=== PATIENT | male | born 1960 | race Caucasian/White ===

== ENCOUNTER 2019-02-07 03:13 | Inpatient (IN) | payer OTHER ==
[2019-02-07] VITALS (9 sets, daily range): BP systolic 123–168; BP diastolic 78–92
[~2019-02-07] VITALS: Ht 180.3 cm; Wt 110.8 kg
--- NOTE | ~2019-02-07 | CON ---
[place], [place] REPORT OF CONSULTATION NAME: ORQUIDEA CARRERA UNIT #: [id number] ROOM: 416 DOCTOR: SHAHAB MCFADDEN MD BIRTHDATE: [birth year] DOS: 02/07/2019 GASTROENDOSCOPIC REPORT HISTORY OF PRESENT ILLNESS: This is a 58-year-old patient who has presented with chief complaint of abdominal pain, undergoing investigation. He was admitted for definitive evaluation of abdominal pain. White blood cell was 5, H and H of 15 and 47. Lactic acid was 1.2. Comprehensive metabolic panel: BUN and creatinine 14 and 1.3. GFR greater than 60. Electrolytes were balanced. Bilirubin 1.9. GOT and GPT of 419 and 548 respectively with alkaline phosphatase of 2.3, lipase greater than 774. CT scan of the abdomen and pelvis was done. Gallbladder distended, which contains numerous gallstones without evidence of intrahepatic or extrahepatic biliary dilation. There is no gallbladder wall thickening. The liver is normal. There is no free air. Pelvic was normal otherwise. Appendix is not distended. Hepatobiliary scan again suggestive of hepatocellular disease; however, I believe this is a cystic duct obstruction as well. No identifiable biliary tree abnormalities. Other details as reported. PAST MEDICAL HISTORY: Associated with obesity, cholelithiasis, renal insufficiency, and cholecystitis. Past medical history also associated with primary hypertension, depression, and paranoia. PAST SURGICAL HISTORY: Appendectomy, abdominal surgeries. SOCIAL HISTORY: Nonsmoker or nonalcohol consumer. FAMILY HISTORY: Noncontributory. ALLERGIES: No known medications. MEDICATIONS: List reviewed. REVIEW OF SYSTEMS: HEENT: Denies double vision, blurred vision. RESPIRATORY: Denies acute shortness of breath. CARDIOVASCULAR: Denies acute chest pain. DIGESTIVE SYSTEM: Abdominal pain. PHYSICAL EXAMINATION: VITAL SIGNS: Stable. HEENT: Head normocephalic, nontraumatic. Mouth and buccal mucosa benign. NECK: Supple, no thyromegaly, no cervical lymphadenopathy. CHEST: Symmetric anatomy, equal expansion. No wheeze, no rhonchi. HEART: Normal sinus rhythm, no gallop, no murmur. ABDOMEN: Distended, obese, large. No rebound tenderness in right upper quadrant, epigastric pain. Bowel sounds present. EXTREMITIES: No cyanosis, no pedal edema. NEUROLOGIC: Alert, oriented to time, place, person. [place], [place] REPORT OF CONSULTATION NAME: ORQUIDEA CARRERA UNIT #: [id number] ROOM: 416 DOCTOR: SHAHAB MCFADDEN MD BIRTHDATE: [birth year] IMPRESSION: Gallstone pancreatitis, cholecystitis, and cholelithiasis. PLAN AND DISCUSSION: This patient requires to have cholecystectomy during this admission and perhaps a cholangiogram one way or the other, endoscopically or intraoperatively and reassessment as his epigastric abdominal pain could be secondary to his pancreatitis. OTHER ADJUNCTIVE DIAGNOSES: Hypertension and depression. SHAHAB MCFADDEN MD CM:CONSTR:REPORT OF CONSULTATION 1916 02/08/19 0248 interface
--- NOTE | ~2019-02-07 | EKG ---
[place], [place] ELECTROCARDIOGRAM REPORT NAME: ORQUIDEA CARRERA UNIT #: [id number] ROOM: 416 DOCTOR: MICHEAL DRAFT REPORT BIRTHDATE: [address] [facility] Test Date: 2019-02-07 Test Time: 03:35:57 Pat Name: ORQUIDEA CARRERA Department: Room: 416 Gender: M Assistant Professor Of Education: Jacinta Soto : 1960 Requested By: JETT FLYNN Order Number: [id number] Reading MD: Liane Larios MD Measurements Intervals [place] Rate: 87 P: 30 [place]: 155 QRS: -27 QRSD: 97 T: 87 QT: 367 QTc: 442 Interpretive Statements Sinus rhythm Borderline left axis deviation RSR' in V1 or V2, probably normal variant Consider anterior infarct Nonspecific T abnormalities, lateral leads Electronically Signed On 02-07-2019 13:19:49 PDT by Liane Larios MD CM:EKGRPT:ELECTROCARDIOGRAM REPORT [id number] JETT RAMOS DRAFT REPORT JETT FLYNN DO
[2019-02-07 03:50] LABS: BASO % 0.5 % (0.0-1.0); EOS # 0.1 10*3/uL (0.0-0.4); EOS % 2.4 % (1.0-4.0); HEMATOCRIT 47.2 % (42.0-52.0); HEMOGLOBIN 15.8 g/dl (14.0-18.0); LYMPH # 1.7 10*3/uL (1.3-4.4); LYMPH % 30.7 % (27.0-41.0); MEAN CELL VOLUME 92.4 fl (80.0-94.0); MEAN CORPUSCULAR HGB 30.9 pg (27.0-31.0); MEAN CORPUSCULAR HGB CONC 33.5 g/dl (33.0-37.0); MEAN PLATELET VOLUME 9.3 fl (9.6-12.3); MONO # 0.4 10*3/uL (0.1-1.0); MONO % 7.3 % (3.0-9.0); NEUT # 3.2 10*3/uL (2.3-7.9); NEUT % 58.6 % (47.0-73.0); PLATELET COUNT AUTOMATED 202 10*3/uL (130-400); RED BLOOD COUNT 5.11 10*6/uL (4.50-5.90); WHITE BLOOD COUNT 5.5 10*3/uL (4.8-10.8)
[2019-02-07 04:04] LABS: ALBUMIN 3.7 gm/dl (3.1-4.5); ALKALINE PHOSPHATASE 203 U/L (45-117); BUN 14 mg/dl (7-24); CHLORIDE 106 mmol/L (98-107); CREATININE 1.38 mg/dL (0.70-1.30); LIPASE 774 U/L (73-393); POTASSIUM 3.8 mmol/L (3.5-5.1); SGOT/AST 419 IU/L (3-35); SGPT/ALT 548 U/L (12-78); SODIUM 142 mmol/L (136-145); TOTAL PROTEIN 7.4 gm/dL (6.4-8.2)
[2019-02-07] MEDS ORDERED: ZESTORETIC 20-1 EACH PO (05:43)
[2019-02-07] MEDS ORDERED: HALOPERIDOL2 M1 PO (05:43)
[2019-02-07 10:43] LABS: BILIRUBIN 1+ (NEGATIVE); BLOOD NEGATIVE (NEGATIVE); CLARITY SL CLOUDY (CLEAR); COLOR YELLOW (YELLOW); GLUCOSE NEGATIVE (NEGATIVE); KETONE NEGATIVE (NEGATIVE); LEUKO ESTERASE NEGATIVE (NEGATIVE); NITRITE NEGATIVE (NEGATIVE); PH 6.5 (5.0-9.0); SPECIFIC GRAVITY <= 1.005 (1.005-1.030); UROBILINOGEN >= 8.0 E.U./dl (0.2-1.0)
[2019-02-07 12:31] LABS: EPITHELIAL CELLS 0-2
[2019-02-07] MEDS ORDERED: EFFEXOR XR150 M1 PO (12:49)
[2019-02-07] MEDS ORDERED: FISH OIL 1,0001 EAC1 PO (12:57)
[2019-02-07] MEDS ORDERED: MIRALAX119 GM PO (12:58)
[2019-02-08] VITALS: BP 131/70
[2019-02-08 07:25] LABS: BASO % 0.5 % (0.0-1.0); EOS # 0.1 10*3/uL (0.0-0.4); EOS % 1.9 % (1.0-4.0); HEMOGLOBIN 14.5 g/dl (14.0-18.0); LYMPH # 1.7 10*3/uL (1.3-4.4); LYMPH % 29.2 % (27.0-41.0); MEAN CELL VOLUME 94.9 fl (80.0-94.0); MEAN CORPUSCULAR HGB 30.6 pg (27.0-31.0); MEAN CORPUSCULAR HGB CONC 32.2 g/dl (33.0-37.0); MEAN PLATELET VOLUME 9.9 fl (9.6-12.3); MONO # 0.4 10*3/uL (0.1-1.0); MONO % 7.4 % (3.0-9.0); NEUT # 3.5 10*3/uL (2.3-7.9); NEUT % 60.5 % (47.0-73.0); PLATELET COUNT AUTOMATED 192 10*3/uL (130-400); RED BLOOD COUNT 4.74 10*6/uL (4.50-5.90); RED CELL DISTRI WIDTH 13.3 % (0-14.5); WHITE BLOOD COUNT 5.7 10*3/uL (4.8-10.8)
[2019-02-08 07:34] LABS: ALBUMIN 3.3 gm/dl (3.1-4.5); BUN 10 mg/dl (7-24); CHLORIDE 111 mmol/L (98-107); CHOLESTEROL 190 mg/dL (<200); CREATININE 1.18 mg/dL (0.70-1.30); HDL CHOLESTEROL 41 mg/dl (40-60); PHOSPHOROUS 2.9 mg/dL (2.5-4.9); POTASSIUM 3.7 mmol/L (3.5-5.1); SGOT/AST 220 IU/L (3-35); SGPT/ALT 467 U/L (12-78); SODIUM 143 mmol/L (136-145); TOTAL PROTEIN 6.6 gm/dL (6.4-8.2)
[2019-02-08 07:38] LABS: ALKALINE PHOSPHATASE 192 U/L (45-117); LDL CHOLESTEROL 114 mg/dL (9-159); TRIGLYCERIDES 174 mg/dl (<150); VLDL CHOLESTEROL 35 mg/dL (6-40)
[2019-02-08 08:00] VITALS: BP 136/74
[2019-02-08] MEDS ORDERED: NORCO 5-325 TA1 EACH PO (10:47)
== END 2019-02-08 12:31 | disposition home or self-care (01) | DRG 444 ==
LOC: ED 03:13 → EDHOLD 04:43 → 4E 04:43
PROVIDERS: Emergency Medicine; Student in an Organized Health Care Education/Training Program; ADMIT Internal Medicine
DX: K80.71 Calculus of gallbladder and bile duct without cholecystitis with obstruction (principal); N17.0 Acute kidney failure with tubular necrosis; K85.10 Biliary acute pancreatitis without necrosis or infection; D50.9 Iron deficiency anemia, unspecified; D72.829 Elevated white blood cell count, unspecified; D47.3 Essential (hemorrhagic) thrombocythemia; E87.8 Other disorders of electrolyte and fluid balance, not elsewhere classified; E66.9 Obesity, unspecified; R74.0 Nonspecific elevation of levels of transaminase and lactic acid dehydrogenase [LDH]; E83.41 Hypermagnesemia; I10 Essential (primary) hypertension; F32.9 Major depressive disorder, single episode, unspecified; Z90.49 Acquired absence of other specified parts of digestive tract; Z82.49 Family history of ischemic heart disease and other diseases of the circulatory system; Z80.42 Family history of malignant neoplasm of prostate; Z79.899 Other long term (current) drug therapy; Z68.34 Body mass index [BMI] 34.0-34.9, adult

== ENCOUNTER → 2019-03-18 | Outpatient (CLI) | payer OTHER ==
[~2019-03-18] MED LIST: EFFEXOR XR150 M1 PO; FISH OIL 1,0001 EAC1 PO; HALOPERIDOL2 M1 PO; MIRALAX119 GM PO; NORCO 5-325 TA1 EACH PO; ZESTORETIC 20-1 EACH PO
== END | disposition home or self-care (01) ==
LOC: US 10:00
DX: K80.20 Calculus of gallbladder without cholecystitis without obstruction (principal)

== ENCOUNTER → 2019-06-23 | Outpatient (CLI) | payer OTHER ==
[~2019-06-23] VITALS: Ht 180.3 cm; Wt 104.3 kg
[2019-06-23 14:23] LABS: BASO % 0.5 % (0.0-1.0); EOS # 0.1 10*3/uL (0.0-0.4); EOS % 1.6 % (1.0-4.0); HEMATOCRIT 49.4 % (42.0-52.0); HEMOGLOBIN 16.8 g/dl (14.0-18.0); LYMPH # 2.2 10*3/uL (1.3-4.4); LYMPH % 35.1 % (27.0-41.0); MEAN CELL VOLUME 91.5 fl (80.0-94.0); MEAN CORPUSCULAR HGB 31.1 pg (27.0-31.0); MEAN PLATELET VOLUME 9.1 fl (9.6-12.3); MONO # 0.4 10*3/uL (0.1-1.0); MONO % 5.8 % (3.0-9.0); NEUT # 3.5 10*3/uL (2.3-7.9); NEUT % 56.7 % (47.0-73.0); PLATELET COUNT AUTOMATED 241 10*3/uL (130-400); RED CELL DISTRI WIDTH 12.5 % (0-14.5); WHITE BLOOD COUNT 6.2 10*3/uL (4.8-10.8)
[2019-06-23 14:41] LABS: ACT PARTIAL THROMBO TIME 26.8 SECONDS (20.0-32.1); INTERNATIONAL NORM RATIO 0.9 (2.0-3.5)
[2019-06-23 14:43] LABS: ALBUMIN 3.8 gm/dl (3.1-4.5); ALKALINE PHOSPHATASE 101 U/L (45-117); BILIRUBIN, DIRECT 0.3 mg/dL (0.0-0.2); BUN 10 mg/dl (7-24); CHLORIDE 107 mmol/L (98-107); CREATININE 1.22 mg/dL (0.70-1.30); POTASSIUM 4.3 mmol/L (3.5-5.1); SGOT/AST 21 IU/L (3-35); SGPT/ALT 39 U/L (12-78); SODIUM 142 mmol/L (136-145); TOTAL PROTEIN 7.6 gm/dL (6.4-8.2)
[2019-06-23 14:54] VITALS: BP 182/110
--- NOTE | 2019-06-24 09:46 | NUR ---
CALLED PATIENT TO ADVISED OF CANCELLATION OF SURGERY SCHEDULED 06/28/2019. SPOKE WITH PATIENT.
== END ==
LOC: SDC 06-20 14:00 → LAB → SDC 14:00 → EDSTATUS 06-28 14:00
PROVIDERS: Surgery
DX: Z01.818 Encounter for other preprocedural examination (principal); K80.20 Calculus of gallbladder without cholecystitis without obstruction

== ENCOUNTER 2022-05-19 23:29 | Emergency (ER) | payer OTHER ==
[~2022-05-19] VITALS: Ht 180.3 cm; Wt 108.9 kg
[2022-05-20] MEDS ORDERED: LEVOFLOXACIN750 M2 PO (01:00)
== END 2022-05-20 01:01 | disposition home or self-care (01) ==
LOC: ED 23:29
DX: J18.9 Pneumonia, unspecified organism (principal); Z90.49 Acquired absence of other specified parts of digestive tract; Z98.890 Other specified postprocedural states; Z20.822 Contact with and (suspected) exposure to COVID-19